=== PATIENT | female | born 1985 | race Caucasian/White ===

== ENCOUNTER → 2019-02-10 | Day surgery (SDC) | payer OTHER ==
--- OUTSIDE RECORDS SUMMARY | 2019-02-10 08:17 | XMS REPORT ---
:1985 [facility] Address [facility] [place] [address]. Gutierres [address] [place] [id number] Care Team Providers Name Role Phone Unavailable Unavailable Unavailable Problems This patient has no known problems. Allergies, Adverse Reactions, Alerts This patient has no known allergies or adverse reactions. Medications This patient has no known medications.
--- OUTSIDE RECORDS SUMMARY | 2019-02-10 08:17 | XMS REPORT ---
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
--- OUTSIDE RECORDS SUMMARY | 2019-02-10 08:17 | XMS REPORT ---
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
--- OUTSIDE RECORDS SUMMARY | 2019-02-10 08:18 | XMS REPORT ---
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
--- OUTSIDE RECORDS SUMMARY | 2019-02-10 08:18 | XMS REPORT ---
[...] Medications Results No Known Results Summary Purpose [employer] Submission
--- OUTSIDE RECORDS SUMMARY | 2019-02-10 08:18 | XMS REPORT ---
[...] Medications Results No Known Results Summary Purpose [employer] Submission
--- NOTE | 2019-02-10 11:43 | RAD REPORT ---
EXAM DESCRIPTION: US - Biopsy Lymph Node - 02/10/2019 10:46 am CLINICAL HISTORY: C81.00, R59.0 COMPARISON: December 2018 cat scan TECHNIQUE: Risks, benefits and alternatives to the procedure explained to the patient and informed c onsent obtained. Skin and subcutaneous tissues anesthetized with lidocaine. Under sonographic guidance a 17 gauge needle was placed into an enlarged left neck lymph node. Throug h this 18 gauge needle was advanced. Three 2 centimeter core specimens obtained and given to patholog y Patient experienced no immediate complication IMPRESSION: Core biopsies of left neck node
== END ==
LOC: FNA 08:15
PROVIDERS: ATTEND Family Medicine
DX: C81.00 Nodular lymphocyte predominant Hodgkin lymphoma, unspecified site (principal); R59.0 Localized enlarged lymph nodes
CPT/HCPCS: 38505; 76942; 88305